=== PATIENT | female | born 2000 | race Caucasian/White ===

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

== ENCOUNTER 2021-05-22 10:39 | Emergency (ER) | payer BC, SELFPAY ==
--- NOTE | 2021-05-22 10:50 | XR_ITS ---
FINAL REPORT CLINICAL HISTORY: . pt fell down steps and has pain. pain when walking. pain worse going to sitting to standing. FINDINGS: SACRUM/COCCX Two views demonstrate a mildly displaced fracture of the inferior sacrum seen on the lateral view. No other fracture or dislocation. IMPRESSION: Fracture as above. Reviewed, Interpreted and Dictated by Nic Landa III, MD Transcribed by Anayeli Sanchez Authenticated by Nic Landa III, MD on 05/22/2021 12:46:35 PM [facility]
[2021-05-22 11:15] VITALS: BP 129/76; PULSE 87; RESP 18; TEMP 37; O2SAT 98; BMI 33.0
--- NOTE | 2021-05-22 11:48 | HMH.EDUTC ---
[facility] Disposition Clinical Impression: Coccyx contusion Qualifiers: Encounter type: initial encounter Qualified Code(s): S30.0XXA - Contusion of lower back and pelvis, initial encounter Disposition: Home, Self-Care Condition on Discharge: Good Instructions: Contusion, DI for Contusion, Ibuprofen Additional Instructions: You may have pain when bending, having sex, lifting objects, or during bowel movements. You may also have bruises, swelling near your anus, and trouble walking or standing up Nonsteroidal anti-inflammatory (NSAID) medicine may decrease swelling and pain or fever. This medicine can be bought with or without a doctor's order Avoid activities that may make your pain worse or may injure your coccyx again. These include picking up heavy things and doing contact or hard sports. When the pain decreases, begin normal, slow movements as caregivers tell you. Rest may help relieve your pain. Sit in a donut-shaped support cushion, and sleep on a firm mattress to help decrease pain. Sleep on your back with a pillow under your knees to help you sleep better. This will decrease the tension on your back. You may also sleep on your side with one or both of your knees bent. Hot or cold compresses may be used soon after having a coccyx injury. Heat or cold is also used to help decrease pain and swelling after having surgery. Heat: Use heat 15 to 20 minutes every hour as long as you need it. Heat brings blood to the injured area and may help it heal faster. Use warm compresses, a heating pad, or sit in a warm water bath. A warm moist compress is a small towel dampened with hot water and placed in a plastic bag. Wrap a towel around the plastic bag to prevent corea. Be careful if you use a heating pad by keeping it turned on low. Do not sleep with a heating pad . Ice: Ice causes blood vessels to constrict (get small) which helps decrease swelling, pain, and redness. Ice is best started right after an injury and for the next 24 to 48 hours afterwards. Put crushed ice in a plastic bag and cover it with a towel. Place this on your coccyx area for 15 to 20 minutes every hour as long as you need it. Do not sleep with the ice pack on your injury Follow up with Family Doctor if no improvement or any worsening of symptoms Return if needed May need to take stool softner for the next week to help prevent straining Straight to the ER if any life threatening symptoms Referrals: Michael Newell MD [Primary Care Provider] - As needed Forms: Work/School Release Time of Disposition: 12:34 Medical Decision Making - Jeffrey Inquiry Pt receiving controlled substance: No Jeffrey was queried for this patient: No Vital Signs: 05/22/21 11:15 Temperature 98.6 F Temperature Source Oral Pulse Rate [Right Brachial] 87 Respiratory Rate 18 Blood Pressure [Right Arm] 129/76 Blood Pressure Mean [Right Arm] 93 Blood Pressure Source [Right Arm] Automatic Cuff Blood Pressure Position [Right Arm] Sitting 02 Sat by Pulse Oximetry 98 Oxygen Delivery Method Room Air Orders (Tests/Meds): ORDERS Category Date Time Status Coccyx XR 2 view [XR coccyx 2V] Stat Exams 05/22/21 10:50 Taken - Radiology Data #1 Image(s): Other (coccyx) Image Reviewed: Yes I reviewed the patient's radiology image w/the ED provider Preliminary Findings: No Fracture Seen [facility] HPI - General Stated complaint: AO fall 05/22 tailbone pain Time Seen by Provider: 05/22/21 11:48 Mode of Arrival: Ambulatory Source of Information: Patient Limitations: No Limitations Description of Symptoms (Recalled from Triage Doc. by RN): PATIENT C/O PAIN TO TAILBONE AFTER FALLING DOWN STEPS AND LANDING ON IT THIS MORNING HEENT Symptoms (Recalled from RN notes): No Resp Symptoms (Recalled from RN notes): No Skin Symptoms (Recalled from RN notes): No MS Symptoms (Recalled from RN notes): Yes Functional Status (Recalled from RN notes): WNL - History of Present Illness Provider Complaint: Patient states
[2021-05-22 12:43] VITALS: BP 129/76; PULSE 87; RESP 18; TEMP 37; O2SAT 98
== END 2021-05-22 12:50 | disposition home or self-care (01) ==
PROVIDERS: Emergency Provider Nurse Practitioner; PCP Family Medicine
DX: S30.0XXA Contusion of lower back and pelvis, initial encounter (principal); W10.9XXA Fall (on) (from) unspecified stairs and steps, initial encounter; Y92.019 Unspecified place in single-family (private) house as the place of occurrence of the external cause
CPT/HCPCS: 72220; 99202; G0463

== ENCOUNTER → 2023-02-15 17:27 | Outpatient (CLI) | payer BC, SELFPAY ==
[2023-02-17 09:30] LABS: Progesterone 10.3 ng/mL (.)
== END ==
PROVIDERS: Visit Provider Nurse Practitioner Obstetrics & Gynecology
DX: N92.6 Irregular menstruation, unspecified (principal)
CPT/HCPCS: 36415; 84144; 84702

== ENCOUNTER → 2023-02-22 14:40 | Outpatient (CLI) | payer BC, SELFPAY ==
[2023-02-22 15:23] LABS: Basophils % 0.3 % (0.1-2.0); Eosinophils # 0.2 K/mm3 (0.0-0.4); Eosinophils % 1.4 % (0.1-12.0); Hematocrit 38.9 % (37.0-47.0); Hemoglobin 12.7 g/dL (12.2-16.2); Lymphocytes # 2.5 K/mm3 (0.7-4.5); Lymphocytes % 23.1 % (10-50); Mean Corpuscular HGB Conc 32.7 g/dL (31.8-35.4); Mean Corpuscular Hemoglobin 31.9 pg (27.0-31.2); Mean Corpuscular Volume 97.6 fl (81-99); Mean Platelet Volume 7.7 fl (7.4-10.4); Monocytes # 0.5 K/mm3 (0.1-1.0); Monocytes % 4.9 % (1.7-9.3); Neutrophils # 7.5 K/mm3 (1.8-7.8); Neutrophils % 70.3 % (37.0-80.0); Platelet Count 313 K/mm3 (142-424); Red Blood Count 3.99 M/mm3 (4.20-5.40); Red Cell Distribution Width 12.8 % (11.5-17.5); White Blood Count 10.7 K/mm3 (4.8-10.8)
[2023-02-24 06:00] LABS: HIV Screen 4th Generation wRfx Non Reactive (Non Reactive)
[2023-02-24 10:14] LABS: Rapid Plasma Reagin Ab Titer Non Reactive titer (NonRea<1:1)
[2023-03-01 09:43] LABS: Hepatitis B Surface Antigen Negative; Hepatitis C Antibody Non Reactive; Rubella Antibodies, IgG 2.94
== END ==
PROVIDERS: PCP Family Medicine; Visit Provider Nurse Practitioner Obstetrics & Gynecology
DX: Z34.91 Encounter for supervision of normal pregnancy, unspecified, first trimester (principal); Z3A.08 8 weeks gestation of pregnancy
CPT/HCPCS: 36415; 85025; 86593; 86703; 86762; 86850; 87086; 87340; 87380; G0432

== ENCOUNTER → 2023-02-25 10:31 | Outpatient (CLI) | payer BC, SELFPAY ==
--- NOTE | 2023-02-25 10:35 | US_ITS ---
PROCEDURE: US OB <= 14 WEEKS FETUS CLINICAL INDICATION: for dates COMPARISON: No exams were available for comparison FINDINGS: Transvaginal sonographic images of the pelvis were obtained. From her last menstrual period she is 8weeks 4days. An intrauterine gestational sac is present with a pole with a crown-rump length of 1.68cm This correlates to a gestational age of 8weeks 1day. heart tones are present with an FHR of 160bpm. Yolk sac is noted. The yolk sac measures 5.1mm. The right ovary is seen and appears normal. It measures 2.9 cm x 2.2 cm x 2.7 cm. The left ovary is seen and appears normal. It measures 2.9 cm x 2.4 cm x 2.1 cm. There is no fluid in the cul-de-sac. IMPRESSION: 1. Viable fetus within the uterine cavity. 2. Fetus measures 8 weeks and 1 day. Her ANDRE will remain 10/03/2023 based on her LMP. 3. Both ovaries are seen and appear normal. 4. No fluid in the cul-de-sac. Dictated by: Harris Espino MD 02/25/2023 17:51 Harris Espino MD in OV 02/25/2023 17:51
== END ==
PROVIDERS: PCP Family Medicine; Visit Provider Nurse Practitioner Obstetrics & Gynecology
DX: Z34.91 Encounter for supervision of normal pregnancy, unspecified, first trimester (principal); Z3A.08 8 weeks gestation of pregnancy
CPT/HCPCS: 76801

== ENCOUNTER 2023-05-18 12:48 | Outpatient (CLI) | payer BC, SELFPAY ==
--- NOTE | 2023-05-18 12:53 | US_ITS ---
PROCEDURE: US OB /MATERNAL DETAIL CLINICAL INDICATION: 20 weeks gestation anatomy scan COMPARISON: No exams were available for comparison FINDINGS: Transabdominal sonographic images of the pelvis were obtained. From her established due date she is 19 weeks 6 days. Single viable intrauterine gestation. Cephalic position. Placenta: Posteriorplacenta grade 1. There is an average amount of fluid. The cervix appears satisfactory. Closed and measuring 3.2 cm in length. Complete survey performed and was unremarkable on the submitted images as in PACS. No discrete anomalies identified on survey imaging by technologist. Active fetus. Three-vessel cord with satisfactory umbilical cord insertion. 4- chamber heart noted. Situs, aortic arch, LVOT, RVOT, three-vessel view appear normal. Survey of brain & ventricles Unremarkable. Cerebellum, thalamus, choroid plexus, cisterna magna appear normal. Face and neck survey unremarkable. Profile, nasion, lips and nose appeared normal. Diaphragm and chest views unremarkable. Abdomen: Both kidneys noted and unremarkable. Stomach and bladder noted and satisfactory. Spine: Survey of the spine satisfactory with no anomalies identified nor imaged. Cervical, thoracic, lower spine appear normal. Both arms and legs noted. Amniotic Fluid: Adequate. Measurements: Average ultrasound age 20weeks 1day. Estimated due date by ultrasound age 0710/04/2023. Estimated weight 336g BPD = 20weeks 0 days HC = 20weeks 0 days AC = 20weeks 3days FL = 20weeks 1day Growth Percentile= 63 Heart Rate = 152bpm Cerebellum = 19weeks 1day Humerus = 20weeks 5days HC/AC is 1.15 FL/BPD is 0.7 FL/AC is 0.21 IMPRESSION: 1. Viable fetus in the cephalic presentation with a posterior placenta grade 1. 2. The fluid is within normal limits. 3. Anatomical scan appears normal. 4. biometry is consistent with the dates. Dictated by: Harris Espino MD 05/18/2023 14:57 Harris Espino MD in OV 05/18/2023 14:57
== END 2023-05-18 23:59 ==
LOC: RAD 12:50
PROVIDERS: PCP Family Medicine; Visit Provider Nurse Practitioner Obstetrics & Gynecology
DX: O26.892 Other specified pregnancy related conditions, second trimester (principal); Z3A.20 20 weeks gestation of pregnancy
CPT/HCPCS: 76811

== ENCOUNTER 2023-07-13 08:13 | Outpatient (CLI) | payer BC, SELFPAY ==
[2023-07-13 08:39] LABS: Basophils # 0.1 K/mm3 (0-0.2); Basophils % 0.5 % (0.1-2.0); Eosinophils # 0.2 K/mm3 (0.0-0.4); Eosinophils % 1.8 % (0.1-12.0); Hematocrit 38.6 % (37.0-47.0); Hemoglobin 12.1 g/dL (12.2-16.2); Lymphocytes # 2.1 K/mm3 (0.7-4.5); Lymphocytes % 17.4 % (10-50); Mean Corpuscular HGB Conc 31.4 g/dL (31.8-35.4); Mean Corpuscular Hemoglobin 31.5 pg (27.0-31.2); Mean Corpuscular Volume 100.3 fl (81-99); Monocytes # 0.5 K/mm3 (0.1-1.0); Monocytes % 4.2 % (1.7-9.3); Neutrophils # 9.1 K/mm3 (1.8-7.8); Platelet Count 279 K/mm3 (142-424); Red Blood Count 3.84 M/mm3 (4.20-5.40); Red Cell Distribution Width 13.5 % (11.5-17.5)
[2023-07-13 08:56] LABS: Glucose,Fasting 99 mg/dl (74-100)
[2023-07-13 10:31] LABS: Glucose 1 Hour 168 mg/dL (74-100)
== END 2023-07-13 23:59 ==
PROVIDERS: PCP Family Medicine; Visit Provider Nurse Practitioner Obstetrics & Gynecology
DX: O26.893 Other specified pregnancy related conditions, third trimester (principal); Z3A.29 29 weeks gestation of pregnancy
CPT/HCPCS: 36415; 82951; 85025

== ENCOUNTER 2023-07-20 08:19 | Outpatient (CLI) | payer BC, SELFPAY ==
[2023-07-20 09:21] LABS: Glucose,Fasting 98 mg/dl (74-100)
[2023-07-20 12:21] LABS: Glucose 3 Hour 83 mg/dL (74-100)
[2023-07-20 12:34] LABS: Glucose 1 Hour 193 mg/dL (74-100); Glucose 2 Hour 130 mg/dL (74-100)
== END 2023-07-20 23:59 ==
LOC: LAB 08:20
PROVIDERS: PCP Family Medicine; Visit Provider Nurse Practitioner Obstetrics & Gynecology
DX: O26.893 Other specified pregnancy related conditions, third trimester (principal); Z3A.29 29 weeks gestation of pregnancy
CPT/HCPCS: 36415; 82951

== ENCOUNTER 2023-08-19 08:41 | Outpatient (CLI) | payer BC, SELFPAY ==
[2023-08-19 09:13] LABS: Basophils # 0.1 K/mm3 (0-0.2); Basophils % 0.7 % (0.1-2.0); Eosinophils # 0.1 K/mm3 (0.0-0.4); Eosinophils % 0.9 % (0.1-12.0); Hematocrit 35.7 % (37.0-47.0); Hemoglobin 11.7 g/dL (12.2-16.2); Lymphocytes # 1.7 K/mm3 (0.7-4.5); Mean Corpuscular HGB Conc 32.8 g/dL (31.8-35.4); Mean Corpuscular Hemoglobin 31.9 pg (27.0-31.2); Mean Corpuscular Volume 97.3 fl (81-99); Mean Platelet Volume 9.2 fl (7.4-10.4); Monocytes # 0.5 K/mm3 (0.1-1.0); Monocytes % 4.6 % (1.7-9.3); Neutrophils # 7.5 K/mm3 (1.8-7.8); Neutrophils % 76.7 % (37.0-80.0); Platelet Count 221 K/mm3 (142-424); Red Blood Count 3.67 M/mm3 (4.20-5.40); White Blood Count 9.8 K/mm3 (4.8-10.8)
[2023-08-19 10:33] LABS: Alanine Aminotransferase 19 U/L (12-78); Albumin Level 3.4 g/dl (3.5-5.0); Albumin/Globulin Ratio 1.3 (1.1-1.8); Alkaline Phosphatase 71 U/L (38-126); Anion Gap 12.6 mEq/L (5-15); Aspartate Amino Transferase 20 U/L (14-36); Bilirubin,Total 0.2 mg/dl (0.2-1.3); Blood Urea Nitrogen 9 mg/dl (7-17); Calcium 8.9 mg/dl (8.4-10.2); Carbon Dioxide 20 mmol/L (22.0-30.0); Chloride 107 mmol/L (98-107); Estimated Glomerular Filt Rate 152 ml/min (>60); GFR (African American) 183 ML/MIN (>60); Globulin 2.6 g/dL (1.3-3.2); Glucose 96 mg/dl (74-100); Potassium 3.6 mmoL/L (3.5-5.1); Sodium 136 mmol/L (136-145); Uric Acid 4.5 mg/dl (2.5-6.2)
[2023-08-19 15:52] LABS: Total Protein 24 Hour,Urine 188 mg/24 hr (40-90); Total Volume,Urine 1250 mL (600-1600)
== END 2023-08-19 23:59 | disposition home or self-care (01) ==
LOC: LAB 08:42
PROVIDERS: PCP Family Medicine; Visit Provider Nurse Practitioner Obstetrics & Gynecology
DX: O13.9 Gestational [pregnancy-induced] hypertension without significant proteinuria, unspecified trimester (principal)
CPT/HCPCS: 36415; 80053; 84155; 84550; 85025

== ENCOUNTER 2023-09-05 09:28 | Outpatient (CLI) | payer BC, SELFPAY | END 2023-09-05 23:59 | disposition home or self-care (01) | LOC: LAB.DROPOF 09-06 09:29 | PROVIDERS: PCP Nurse Practitioner Obstetrics & Gynecology; Visit Provider Nurse Practitioner Obstetrics & Gynecology | DX: O13.3 Gestational [pregnancy-induced] hypertension without significant proteinuria, third trimester (principal); O24.410 Gestational diabetes mellitus in pregnancy, diet controlled; Z3A.36 36 weeks gestation of pregnancy | CPT/HCPCS: 86403; 87086 ==

== ENCOUNTER 2023-09-12 15:09 | Inpatient (IN) | payer BC, SELFPAY ==
[2023-09-12 15:19] VITALS: BMI 35.9
--- NOTE | 2023-09-12 15:25 | HMH.PHAINT1 ---
Pharmacy Intervention Comments: MEDICATION RECONCILIATION COMPLETED ON PATIENT USING EXTERNAL FILL HISTORY FROM PHARMACY. -BAILEY CHARLES, OZD
[2023-09-12 15:53] LABS: Basophils % 0.3 % (0.1-2.0); Eosinophils # 0.1 K/mm3 (0.0-0.4); Eosinophils % 1.5 % (0.1-12.0); Hematocrit 34.8 % (37.0-47.0); Hemoglobin 11.4 g/dL (12.2-16.2); Lymphocytes # 1.8 K/mm3 (0.7-4.5); Lymphocytes % 19.5 % (10-50); Mean Corpuscular HGB Conc 32.8 g/dL (31.8-35.4); Mean Corpuscular Hemoglobin 31.2 pg (27.0-31.2); Mean Corpuscular Volume 95.3 fl (81-99); Mean Platelet Volume 8.9 fl (7.4-10.4); Monocytes # 0.5 K/mm3 (0.1-1.0); Monocytes % 5.8 % (1.7-9.3); Neutrophils # 6.6 K/mm3 (1.8-7.8); Neutrophils % 72.9 % (37.0-80.0); Platelet Count 269 K/mm3 (142-424); Red Blood Count 3.65 M/mm3 (4.20-5.40); White Blood Count 9.1 K/mm3 (4.8-10.8)
[2023-09-12 16:01] LABS: Chloride 110 mmol/L (98-107); Potassium 4.3 mmoL/L (3.5-5.1); Sodium 134 mmol/L (136-145)
[2023-09-12 16:04] LABS: Alanine Aminotransferase 20 U/L (12-78); Albumin Level 3.5 g/dl (3.5-5.0); Albumin/Globulin Ratio 1.1 (1.1-1.8); Alkaline Phosphatase 84 U/L (38-126); Anion Gap 9.3 mEq/L (5-15); Aspartate Amino Transferase 24 U/L (14-36); Bilirubin,Total 0.2 mg/dl (0.2-1.3); Blood Urea Nitrogen 11 mg/dl (7-17); Carbon Dioxide 19 mmol/L (22.0-30.0); Creatinine Clearance Estimated 259 mL/min (50-200); Estimated Glomerular Filt Rate 123 ml/min (>60); GFR (African American) 149 ML/MIN (>60); Globulin 3.2 g/dL (1.3-3.2); Total Protein,Serum 6.7 g/dl (6.3-8.2)
[2023-09-12 16:05] LABS: Calcium 9.2 mg/dl (8.4-10.2); Glucose 105 mg/dl (74-100)
[2023-09-12 16:33] VITALS: BMI 35.9
[2023-09-12] MEDS: miSOPROStol 100MCG TABLET 50 MCG PO ×2 (16:50→23:13)
[2023-09-12] MEDS: DEXTROSE 5%-LACTATED RINGERS 1,000 ML 125 ML IV (16:50)
[2023-09-12] MEDS: LACTATED RINGERS 1000ML 1,000 ML 250 ML IV (16:50)
[2023-09-12 21:04] LABS: Microscopic, Urine URINE MICROSCOPIC (MICROSCOPIC)
[2023-09-12 21:10] LABS: Appearance,Urine CLEAR (Clear); Bilirubin,Urine Negative (Negative); Blood, Urine Negative (Negative); Color,Urine DARK YELLOW (Yellow); Glucose,Urine (UA) Negative (Negative); Ketones,Urine Negative (Negative); Leukocyte Esterase,Urine Negative (Negative); Nitrate,Urine Negative (Negative); Protein,Urine TRACE (Negative); Specific Gravity, Urine >= 1.030 (1.005-1.030); Urobilinogen,Urine 0.2 EU/dl (0.2)
[2023-09-12 21:23] LABS: Amphetamine/Metha Screen,Urine Negative ng/ml (<1000)
[2023-09-12 21:24] LABS: Barbiturates Screen,Urine Negative ng/ml (<200); Benzodiazepines Screen,Urine Negative ng/ml (<200)
[2023-09-12 21:25] LABS: Cannabinoid Screen,Urine Negative ng/ml (<50)
[2023-09-12 21:26] LABS: Cocaine Screen,Urine Negative ng/ml (<300)
[2023-09-12 21:27] LABS: Methadone Screen,Urine Negative ng/ml (<300); Opiate Screen,Urine Negative ng/ml (<300)
[2023-09-12 21:28] LABS: Phencyclidine Screen,Urine Negative ng/ml (<25)
[2023-09-12] MEDS: LABETALOL 100MG TABLET 200 MG PO (21:29)
[2023-09-12 21:35] LABS: Bacteria,Urine 1+ /lpf; Mucus,Urine 1+ /lpf
[2023-09-12 21:36] LABS: Calcium Oxalate Crystals,Urine Trace /lpf
[2023-09-13] MEDS: DEXTROSE 5%-LACTATED RINGERS 1,000 ML 125 ML IV ×2 (04:49→19:44)
[2023-09-13] MEDS: OXYTOCIN/RINGERS LACTATE 30 UNITS/500 ML BAG IV (04:50)
[2023-09-13 07:19] VITALS: BP 164/93; PULSE 74; RESP 16; TEMP 36.7; O2SAT 97
--- NOTE | 2023-09-13 08:44 | EXP.LABOR.NO ---
Labor Note Subjective: Date: 09/13/23 Time: 08:44 regular contraction Objective: NST:: Reactive Contractions:: every 2-3 minutes Cervical Dilation:: 3 Effacement:: 50% Station: -2 Membranes: artificially ruptured Comment:: I ruptured membranes and there was clear fluid. Fetus: Monitoring?: Yes monitoring type:: Internal Comment:: I applied a scalp clip and inserted an IUPC. Assessment: Labor progressing?: Yes Cephalopelvic disproportion?: No Plan: Anesthesia for epidural?: No Continue to labor down?: Yes Plan for ?: No Continue to monitor?: Yes Start pushing?: No Comment:: She has progressed overnight and the cervix is soft 3 cm plus and Station -2. I ruptured her membranes and there was clear fluid. I inserted an IUPC and scalp clip. We will plan for vaginal delivery.
[2023-09-13] MEDS: LABETALOL 100MG TABLET 200 MG PO ×2 (08:52→22:44)
[2023-09-13] MEDS: LACTATED RINGERS 1000ML 1,000 ML 500 ML IV (08:52)
--- NOTE | 2023-09-13 10:56 | P.PNANES_ITS ---
[facility] Disclaimer: The information contained in this section may have been updated after the patient was seen, as this information can be updated by other users. Medical History Gestational diabetes mellitus (GDM) Surgical History No significant past surgical history Family History Other Diabetes Hypertension Social History Smoking Status: Former smoker tobacco type: cigarettes packs per day: 1 alcohol intake: never substance use type: denies use current occupational status: employed Travel in the last 8 weeks: None [facility] Anesthesia Checklist Patient Identification Patient Identification: Arm Band Structural Data Admitted From: Inpatient Planned Operative Procedure/s: Labor Epidural Consent for Planned Operative Procedure(s) Verified: Yes Verified Documents: Surgical Consent and History and Physical NPO Status Verified Time NPO: 00:00 Additional verifications Anesthesia Reactions: No Neurological Assessment Level of Consciousness: Awake, Alert and Appropriate Anesthesia Plan Anesthesia Risk discussed: Yes Anesthesia Plan: Verified ASA Class: II Anesthesia Type: Epidural
--- NOTE | 2023-09-13 11:18 | EXP.LABOR.NO ---
Labor Note Subjective: Date: 09/13/23 Time: 11:18 regular contraction Objective: NST:: Reactive Contractions:: every 2-3 minutes Cervical Dilation:: 4 Effacement:: 80% Station: -1 Membranes: artificially ruptured Fetus: Monitoring?: Yes monitoring type:: Internal Assessment: Labor progressing?: Yes Cephalopelvic disproportion?: No Plan: Anesthesia for epidural?: Yes Continue to labor down?: Yes Plan for ?: No Continue to monitor?: Yes Start pushing?: No Additional information:: She continues to do well and the cervix has thinned and is now 4 cm dilated. The baby's head is come down. She has an epidural. We will expect a vaginal delivery.
--- NOTE | 2023-09-13 11:19 | EXP.HP ---
History of Present Illness *Admission Date: 09/12/23 *Reason for visit:: Term , chronic hypertension, gestational diabetes on insulin *History of present illness: She is a 23-year-old 1 para 0 at 37 weeks gestational age. She has been followed at [facility] for her gestational diabetes. She also has chronic hypertension. She has been taking labetalol 200 mg twice daily. As result of these diagnoses she is admitted for induction of labor at term. A positive blood Rubella immune GBS negative PFSH PFS Disclaimer: The information contained in this section may have been updated after the patient was seen, as this information can be updated by other users. Medical History Gestational diabetes mellitus (GDM) Surgical History No significant past surgical history Family History Diabetes Hypertension Social History Smoking Status: Former smoker tobacco type: cigarettes packs per day: 1 alcohol intake: never substance use type: denies use current occupational status: employed Travel in the last 8 weeks: None Review of Systems Review of Systems Review of systems:: pertinent systems reviewed and negative unless documented below Meds Home Medications and Allergies Home Medications Medication Instructions Recorded Confirmed Type vits no.126-ferrous fum 1 tab PO DAILY 02/22/23 09/12/23 History 28 mg iron-folic acid 800 mcg tablet (Classic ) famotidine 20 mg tablet (Pepcid) 20 mg PO DAILY #30 tabs 06/02/23 09/12/23 Rx aspirin 81 mg tablet,delayed 81 mg PO DAILY 07/07/23 09/12/23 History release (Adult Low Dose Aspirin) blood sugar diagnostic (Accu-Chek #10 ea 08/10/23 09/12/23 History Guide test strips) blood-glucose meter (Accu-Chek #1 ea 08/10/23 09/12/23 History Guide Glucose Meter) labetalol 200 mg tablet 200 mg PO BID #60 tabs 08/17/23 09/12/23 Rx blood-glucose meter,continuous #1 ea 08/24/23 09/12/23 History (Dexcom G7 Reconstructive Surgeon) blood-glucose sensor (Dexcom G7 #1 ea 08/24/23 09/12/23 History Sensor device) insulin glargine 100 unit/mL (3 10 unit SQ DAILY 08/24/23 09/12/23 History mL) subcutaneous pen (Lantus Solostar U-100 Insulin) pen needle, diabetic 31 gauge x #1,200 ea 08/24/23 09/12/23 History 06/17 (BD Ultra-Fine Mini Pen Needle) New Prescriptions to Start Prescriptions: Allergies Allergy/AdvReac Type Severity Reaction Status Date / Time acetaminophen Allergy Mild Hives Verified 09/08/23 08:33 [From Pamprin Max] Exam Data for Last 24 hours Vital signs and Labs for Last 24 Hours: Temp Pulse Resp BP Pulse Ox O2 Del Method 98.1 F 74 16 164/93 H 97 Room Air 09/13/23 07:19 09/13/23 07:19 09/13/23 07:19 09/13/23 07:19 09/13/23 07:19 09/13/23 07:19 Laboratory Results - last 24 hr 09/12/23 15:40: WBC 9.1, RBC 3.65 L, Hgb 11.4 L, Hct 34.8 L, MCV 95.3, MCH 31.2, MCHC 32.8, RDW 14.0, Plt Count 269, MPV 8.9, Neut % (Auto) 72.9, Lymph % (Auto) 19.5, Union % (Auto) 5.8, Eos % (Auto) 1.5, Baso % (Auto) 0.3, Neut # (Auto) 6.6, Lymph # (Auto) 1.8, Union # (Auto) 0.5, Eos # (Auto) 0.1, Baso # (Auto) 0.0, Sodium 134 L, Potassium 4.3, Chloride 110 H, Carbon Dioxide 19 L, Anion Gap 9.3, BUN 11, Creatinine 0.60, Estimated Creat Clear 259, Estimated GFR 123, Est GFR ( Amer) 149, Glucose 105 H, Calcium 9.2, Total Bilirubin 0.2, AST 24, ALT 20, Alkaline Phosphatase 84, Total Protein 6.7, Albumin 3.5, Globulin 3.2, Albumin/Globulin Ratio 1.1, Blood Type A Positive, Antibody Screen Negative 09/12/23 20:55: Urine Color Dark yellow, Urine Appearance Clear, Urine pH 6.0, Ur Specific [place] >= 1.030, Urine Protein Trace, Urine Glucose (UA) Negative, Urine Ketones Negative, Urine Blood Negative, Urine Nitrate Negative, Urine Bilirubin Negative, Urine Urobilinogen 0.2, Ur Leukocyte Esterase Negative, Urine WBC 3-5, Ur Squamous Epith Cells 5-10, Calcium Oxalate Crystal Trace, Urine Bacteria 1+, Hyaline Casts 3-5, Urine Mucus 1+, Urine Opiates Screen Negative, Urine Methadone Screen Negative, Ur Barbituates Screen Negative, Ur Phencyclidine Scrn Negative, Ur Amphetamines Screen Negative, U Benzodiazepines Scrn Negative, Urine Cocaine Screen Negative, U Marijuana (THC) Screen Negative I & O for Last 24 hours: Intake & Output 09/10/23 09/11/23 09/12/23 09/13/23 11:59 11:59 11:59 11:59 Weight 250 lb Constitutional Constitutional: no acute distress *Routine HEENT Exam Head: Present normocephalic Eye: Present EOMI and PERRL ENT: Present mucous membranes moist *Routine Neck Exam Neck: Present supple; Absent lymphadenopathy *Routine Respiratory Exam Respiratory: Present CTA bilaterally *Routine Cardiovascular Exam Cardiovascular: Present RRR *Routine Abdominal Exam Abdominal: Present soft and normoactive bowel sounds; Absent tenderness *Routine Rectal Exam Rectal:: deferred *Routine Genitalia Exam Genitalia:: deferred *Routine Extremities Exam Extremities: Absent cyanosis, clubbing or edema *Routine Skin Exam Skin: Present warm; Absent rash *Routine Neurological Exam Neurological: Present alert and oriented X3 Assessment and Plan *Assessment and plan (1) Gestational hypertension: Status: Acute Qualifiers: Trimester: third trimester Qualified Code(s): O13.3 - Gestational [-induced] hypertension without significant proteinuria, third trimester Category: Medical Code(s): O13.9 - Gestational [-induced] hypertension without significant proteinuria, unspecified trimester (2) Gestational diabetes mellitus (GDM): Status: Acute Qualifiers: Gestational diabetes mellitus control: diet-controlled Trimester: third trimester Qualified Code(s): O24.410 - Gestational diabetes mellitus in , diet controlled Category: Medical Code(s): O24.419 - Gestational diabetes mellitus in , unspecified control Plan She has gestational diabetes on insulin once daily as well as chronic hypertension. As result of this we are inducing her at term.
--- NOTE | 2023-09-13 13:49 | EXP.LABOR.NO ---
Labor Note Subjective: Date: 09/13/23 Time: 13:25 regular contraction Objective: NST:: Reactive Contractions:: every 2-3 minutes Cervical Dilation:: 5 Effacement:: 80% Station: -1 Membranes: artificially ruptured Fetus: Monitoring?: Yes monitoring type:: Internal Assessment: Labor progressing?: Yes Cephalopelvic disproportion?: No Plan: Anesthesia for epidural?: Yes Continue to labor down?: Yes Plan for ?: No Continue to monitor?: Yes Start pushing?: No Additional information:: She is having regular contractions. Her cervix has continued to change. We will continue with the fact and management.
[2023-09-13] MEDS: ONDANSETRON 4MG/2ML VIAL 4 MG IV (16:24)
[2023-09-13 16:36] VITALS: BP 145/92; PULSE 94; RESP 18; TEMP 36.7; O2SAT 100
--- NOTE | 2023-09-13 16:36 | EXP.LABOR.NO ---
Labor Note Subjective: Date: 09/13/23 Time: 16:36 regular contraction Objective: NST:: Reactive Contractions:: every 2-3 minutes Cervical Dilation:: 6 Effacement:: 90% Station: 0 Membranes: artificially ruptured Fetus: Monitoring?: Yes monitoring type:: Internal Assessment: Labor progressing?: Yes Cephalopelvic disproportion?: No Plan: Anesthesia for epidural?: Yes Continue to labor down?: Yes Plan for ?: No Continue to monitor?: Yes Start pushing?: No Comment:: She continues to do well. The baby's head has come down significantly. Cervix is 6 cm, 90%, Station 0. We will continue expectant management.
--- NOTE | 2023-09-13 19:25 | EXP.LABOR.NO ---
Labor Note Subjective: Date: 09/13/23 Time: 19:28 regular contraction Objective: NST:: Reactive Contractions:: every 2-3 minutes Cervical Dilation:: 5-6 Effacement:: 90% Station: 0 Membranes: artificially ruptured Fetus: Monitoring?: Yes monitoring type:: Internal Assessment: Labor progressing?: No Cephalopelvic disproportion?: Yes Plan: Anesthesia for epidural?: Yes Continue to labor down?: Yes Plan for ?: Yes Continue to monitor?: Yes Start pushing?: No Comment:: She really has not progressed all afternoon. If she does not progress in the next hour or so then we will consider a . We are increasing the oxytocin at this point. Nonstress test is reactive.
--- NOTE | 2023-09-13 21:17 | EXP.LABOR.NO ---
Labor Note Subjective: Date: 09/13/23 Time: 21:17 regular contraction Objective: NST:: Reactive Contractions:: every 2-3 minutes Cervical Dilation:: 7 Effacement:: 90% Station: 0 Membranes: artificially ruptured Fetus: Monitoring?: Yes monitoring type:: Internal and External Comment:: Clip came off and so we are now monitoring heartbeat externally. Assessment: Labor progressing?: Yes Cephalopelvic disproportion?: No Plan: Anesthesia for epidural?: Yes Continue to labor down?: Yes Plan for ?: No Continue to monitor?: Yes Start pushing?: No Comment:: Nonstress test is reactive and contractions are regular. I suspect she may be direct occiput posterior and that is why she is coming down so slowly. There is a significant amount of molding in the head but the head seems to come down well with contractions. We will continue to monitor and continue to expect a vaginal delivery.
[2023-09-13] MEDS: OXYTOCIN/RINGERS LACTATE 30 UNITS/500 ML BAG 999 UNITS IV (23:35)
--- NOTE | 2023-09-13 23:47 | P.PCN_ITS ---
Delivery Note Delivery Date:: 09/13/23 Delivery Time:: 23:32 Anesthesia Type: Epidural Was labor medically induced?: Yes Induction method: per misoprostol protocol Gestational age (weeks): 37 Infant delivered prior to 39 weeks?: Yes Justification for early elective delivery:: Gestational Hypertension and Diabetes Mellitus Infant Gender: Male at 1 minute: 8 at 5 minutes: 9 Delivery Procedure:: She is a 23-year-old 1 para 0 at 37+ weeks gestational age. She has gestational hypertension and likely chronic hypertension along with gestational diabetes. She was using low-dose long-acting insulin. As result of this we elected to induce her labor at 37 weeks. We started with 2 doses of oral misoprostol and then began IV oxytocin. She had her membranes ruptured and under labor epidural progressed to full dilation. She delivered spontaneously a liveborn male child at 11:32 PM in the evening of September 13, 2023. On delivery of the head, the anterior shoulder then easily delivered followed by the rest the 's body atraumatically. The baby was stimulated and cried spontaneously. The oropharynx and nasopharynx were bulb suctioned. We allowed the cord to continue to pulsate for approximately 1 minute. The cord was then doubly clamped and cut and the infant was placed on the mother's abdomen for further care. The nurses assigned Apgars of 8 at 1 minute and 9 at 5 minutes. We then obtained cord blood. She received IV oxytocin and using gentle traction on the cord and countertraction on the fundus I was able to easily deliver the placenta at 3 minutes after delivery. There was a normal three-vessel cord. There were no pe rineal or vaginal lacerations. She has A positive blood, she is well immune and was group B streptococcus negative. She plans to breast-feed. Estimated blood loss was approximately 100 cc. Placental Delivery Description: Spontaneous
[2023-09-13] MEDS: OXYTOCIN/RINGERS LACTATE 30 UNITS/500 ML BAG 40 UNITS IV (23:50)
[2023-09-14 06:57] LABS: Hematocrit 30.8 % (37.0-47.0); Hemoglobin 10.2 g/dL (12.2-16.2)
[2023-09-14 06:59] LABS: Chloride 108 mmol/L (98-107); Potassium 3.2 mmoL/L (3.5-5.1); Sodium 134 mmol/L (136-145)
[2023-09-14 07:01] LABS: Blood Urea Nitrogen 4 mg/dl (7-17); Creatinine Clearance Estimated 311 mL/min (50-200); Estimated Glomerular Filt Rate 152 ml/min (>60); GFR (African American) 183 ML/MIN (>60)
[2023-09-14 07:02] LABS: Alanine Aminotransferase 20 U/L (12-78); Albumin Level 2.9 g/dl (3.5-5.0); Albumin/Globulin Ratio 1.1 (1.1-1.8); Alkaline Phosphatase 87 U/L (38-126); Anion Gap 11.2 mEq/L (5-15); Aspartate Amino Transferase 26 U/L (14-36); Bilirubin,Total 0.5 mg/dl (0.2-1.3); Calcium 9.1 mg/dl (8.4-10.2); Carbon Dioxide 18 mmol/L (22.0-30.0); Globulin 2.6 g/dL (1.3-3.2); Glucose 117 mg/dl (74-100); Total Protein,Serum 5.5 g/dl (6.3-8.2)
--- NOTE | 2023-09-14 08:52 | P.PN_ITS ---
Subjective *Date: 09/14/23 *Time: 08:52 Interval history: She continues to do well this morning. Her lochia is normal. She is breast- feeding. She denies any pain. Hemoglobin is stable at 10.2. Medical Exam Vital signs and Labs for Last 24 Hours: Vital Signs Temp Pulse Resp BP Pulse Ox O2 Del Method 09/13/23 16:36 98.0 F 94 H 18 145/92 H 100 Room Air Intake and Output 09/13/23 09/14/23 09/14/23 19:59 03:59 11:59 Output Total 1000 / 1000 Balance -1000 / -1000 Output: Output, Urine Amount (Catheter) 1000 / 1000 Banuelos 1000 / 1000 Laboratory Results - last 24 hr 09/14/23 06:20: Hgb 10.2 L, Hct 30.8 L, Sodium 134 L, Potassium 3.2 L D, Chloride 108 H, Carbon Dioxide 18 L, Anion Gap 11.2, BUN 4 L D, Creatinine 0.50 L, Estimated Creat Clear 311 H, Estimated GFR 152, Est GFR ( Amer) 183 D , Glucose 117 H, Calcium 9.1, Total Bilirubin 0.5, AST 26, ALT 20, Alkaline Phosphatase 87, Total Protein 5.5 L, Albumin 2.9 L, Globulin 2.6, Albumin/Globulin Ratio 1.1 I & O for Labs for Last 24 Hours: Intake & Output 09/11/23 09/12/23 09/13/23 09/14/23 11:59 11:59 11:59 11:59 Output Total 1000 / 1000 Balance -1000 / -1000 Weight 250 lb Head: Present normocephalic ENT: Present normal exam Neck: Present normal inspection Respiratory: Present normal respiratory effort; Absent accessory muscle use Assessment and Plan *Assessment and plan (1) Gestational hypertension: Status: Acute Qualifiers: Trimester: third trimester Qualified Code(s): O13.3 - Gestational [-induced] hypertension without significant proteinuria, third trimester Category: Medical Code(s): O13.9 - Gestational [-induced] hypertension without significant proteinuria, unspecified trimester (2) Gestational diabetes mellitus (GDM): Status: Acute Qualifiers: Gestational diabetes mellitus control: diet-controlled Trimester: third trimester Qualified Code(s): O24.410 - Gestational diabetes mellitus in , diet controlled Category: Medical Code(s): O24.419 - Gestational diabetes mellitus in , unspecified control (3) Normal delivery: Status: Acute Category: Medical Code(s): O80 - Encounter for full-term uncomplicated delivery Plan She continues to do well. Her lochia is normal. She is breast-feeding. We will plan to send her home late tomorrow or the following day since she was only 37 weeks.
[2023-09-14 09:19] VITALS: BP 135/70; PULSE 115; RESP 16; TEMP 36.7; O2SAT 97
[2023-09-14] MEDS: LABETALOL 100MG TABLET 200 MG PO ×2 (09:43→21:33)
[2023-09-14 17:00] VITALS: BP 132/84; PULSE 99; RESP 16; TEMP 36.7; O2SAT 97
--- NOTE | 2023-09-14 21:21 | EXP.DC.SUM ---
General Admission date:: 09/12/23 Discharge date: 09/14/23 HPI HPI HPI: She is a 23-year-old 1 para 0 at 37 weeks gestational age. She has been followed at [facility] for her gestational diabetes. She also has chronic hypertension. She has been taking labetalol 200 mg twice daily. As result of these diagnoses she is admitted for induction of labor at term. A positive blood Rubella immune GBS negative Hospital Course Hospital Course Hospital Course: Lisa Acosta is a 23yo day #1 following a normal spontaneous vaginal delivery at 37 weeks gestation. was complicated by chronic hypertension and gestational diabetes on insulin. She delivered a live viable male infant, Marquez who weighed 7 pounds 5 ounces with Apgars of 8 and 9. She has both breast and bottlefeeding. Her EBL was 100 mL. She is rubella immune and GBS negative. She had an uncomplicated vaginal delivery and was discharged on day 1 when the infant was transferred to for NICU care. Routine discharge instructions reviewed with the patient in detail and she voiced understanding. All questions and concerns were addressed. The patient was appropriately tearful. Reviewed blues and depression. Patient will follow-up in 2 weeks for routine visit. Exam Data for Last 24 hours Vital signs and Labs for Last 24 Hours: Temp Pulse Resp BP Pulse Ox O2 Del Method 98.0 F 99 H 16 132/84 97 Room Air 09/14/23 17:00 09/14/23 17:00 09/14/23 17:00 09/14/23 17:00 09/14/23 17:00 09/14/23 17:00 Laboratory Results - last 24 hr 09/14/23 06:20: Hgb 10.2 L, Hct 30.8 L, Sodium 134 L, Potassium 3.2 L D, Chloride 108 H, Carbon Dioxide 18 L, Anion Gap 11.2, BUN 4 L D, Creatinine 0.50 L, Estimated Creat Clear 311 H, Estimated GFR 152, Est GFR ( Amer) 183 D, Glucose 117 H, Calcium 9.1, Total Bilirubin 0.5, AST 26, ALT 20, Alkaline Phosphatase 87, Total Protein 5.5 L, Albumin 2.9 L, Globulin 2.6, Albumin/Globulin Ratio 1.1 I & O for Last 24 hours: Intake & Output 09/11/23 09/12/23 09/13/23 09/14/23 23:59 23:59 23:59 23:59 Output Total 1000 / 1000 Balance -1000 / -1000 Weight 250 lb Narrative: General: patient is alert oriented in no acute distress and responds appropriately to questions. Appears to be in minimal pain. HEENT: NCAT, EOMI, moist mucous membranes, neck supple with full ROM Cardiovascular: RRR +S1/S2, no murmurs or rubs Pulmonary: Clear to auscultation bilaterally, nonlabored breathing, symmetric chest rise Abdominal: Fundus below the umbilicus, firm, and tenderness appropriate for the period. Extremities: trace edema, no tenderness or cyanosis noted Skin: Normal turgor, intact, warm. Negative for erythema, pallor, petechia, or lesions Neurologic: Negative for sensory or motor deficit Psychiatric: Normal affect, normal thought process, good judgment and insight. appropriately tearful and anxious about infant NICU transfer Results Data Completed and Pending Labs on day of discharge: Labs from last 24 hours 09/14/23 06:20 Hgb 10.2 L Hct 30.8 L Sodium 134 L Potassium 3.2 L D Chloride 108 H Carbon Dioxide 18 L Anion Gap 11.2 BUN 4 L D Creatinine 0.50 L Estimated Creat Clear 311 H Estimated GFR 152 Est GFR ( Amer) 183 D Glucose 117 H Calcium 9.1 Total Bilirubin 0.5 AST 26 ALT 20 Alkaline Phosphatase 87 Total Protein 5.5 L Albumin 2.9 L Globulin 2.6 Albumin/Globulin Ratio 1.1 DS: Diagnosis Discharge Diagnosis (1) Gestational hypertension: Status: Acute Code(s): O13.9 - Gestational [-induced] hypertension without significant proteinuria, unspecified trimester Qualifiers: Trimester: third trimester Qualified Code(s): O13.3 - Gestational [-induced] hypertension without significant proteinuria, third trimester Problem details: Patient's blood pressure has been mildly elevated on review of her course today. Continue home labetalol at 200 mg twice daily. She is overdue for her second dose of labetalol at this time. Discussed preeclampsia. Patient will return for any blood pressure 160/110 or greater, headaches, vision changes, or right upper quadrant pain. [facility] labs reviewed prior to discharge and within normal limits and appropriate (2) Gestational diabetes mellitus (GDM): Status: Acute Code(s): O24.419 - Gestational diabetes mellitus in , unspecified control Qualifiers: Gestational diabetes mellitus control: diet-controlled Trimester: third trimester Qualified Code(s): O24.410 - Gestational diabetes mellitus in , diet controlled Problem details: Discontinue all Accu-Cheks and medication Recommend a 6-week 75 g 2-hour Glucola challenge test to rule out type 2 diabetes mellitus (3) Normal delivery: Status: Acute Code(s): O80 - Encounter for full-term uncomplicated delivery Problem details: Uncomplicated delivery. Patient is doing well. Lochia scant. Ambulating without difficulty and voiding without dysuria. Follow-up in 2 weeks. Routine discharge instructions reviewed (4) GDM, class A1: Status: Acute Code(s): O24.410 - Gestational diabetes mellitus in , diet controlled Meds Home Medications and Allergies Home Medications Medication Instructions Recorded Confirmed Type vits no.126-ferrous fum 1 tab PO DAILY 02/22/23 09/12/23 History 28 mg iron-folic acid 800 mcg tablet (Classic ) famotidine 20 mg tablet (Pepcid) 20 mg PO DAILY #30 tabs 06/02/23 09/12/23 Rx blood sugar diagnostic (Accu-Chek #10 ea 08/10/23 09/12/23 History Guide test strips) blood-glucose meter (Accu-Chek #1 08/10/23 09/12/23 History Guide Glucose Meter) blood-glucose meter,continuous #1 08/24/23 09/12/23 History (Dexcom G7 Hadoop Application Developer) blood-glucose sensor (Dexcom G7 #1 08/24/23 09/12/23 History Sensor device) pen needle, diabetic 31 gauge x #1,200 08/24/23 09/12/23 History 3/16 (BD Ultra-Fine Mini Pen Needle) acetaminophen 500 mg tablet 500 mg PO Q6H PRN fever #30 tabs 09/14/23 Rx ferrous sulfate 325 mg (65 mg 325 mg PO DAILY #30 tabs 09/14/23 Rx iron) tablet,delayed release ibuprofen 800 mg tablet 800 mg PO Q8H PRN pain #60 tabs 09/14/23 Rx labetalol 200 mg tablet 200 mg PO BID #60 tabs 09/14/23 Rx sennosides 8.6 mg tablet (Senna 8.6 mg PO BIDP PRN Constipation 09/14/23 Rx Lax) #60 tabs New Prescriptions to Start Prescriptions: acetaminophen Pavan,Bisi ferrous sulfate Pavan,Bisi ibuprofen Pavan,Bisi labetalol Pavan,Bisi sennosides [Senna Lax] PavanBisi Allergies Allergy/AdvReac Type Severity Reaction Status Date / Time acetaminophen Allergy Mild Hives Verified 09/08/23 08:33 [[facility]] Discharge Plan Disposition Patient Disposition: Home, Self-Care Condition: Good Discharge Order Discharge Orders: Discharge Order (Routine); Ordered 09/14/23 Ordered By: Bisi Browne Follow up Plan Follow up with: Harris Espino MD [Staff Physician] - 2 weeks Prescriptions/Medication Reconciliation: New acetaminophen 500 mg tablet 500 mg PO Q6H PRN (Reason: fever) Qty: 30 3RF ferrous sulfate 325 mg (65 mg iron) tablet,delayed release (DR/EC) 325 mg PO DAILY Qty: 30 3RF sennosides [Senna Lax] 8.6 mg Tablet 8.6 mg PO BIDP PRN (Reason: Constipation) Qty: 60 2RF ibuprofen 800 mg tablet 800 mg PO Q8H PRN (Reason: pain) Qty: 60 2RF Continued Classic 28 mg iron- 800 mcg tablet 1 tab PO DAILY famotidine [Pepcid] 20 mg tablet 20 mg PO DAILY Qty: 30 4RF labetalol 200 mg tablet 200 mg PO BID Qty: 60 4RF Discontinued aspirin [Adult Low Dose Aspirin] 81 mg tablet,delayed release (DR/EC) 81 mg PO DAILY insulin glargine [Lantus Solostar U-100 Insulin] 100 unit/mL (3 mL) insulin pen 10 unit SQ DAILY Patient Comments: INJECT 10 UNITS UNDER THE SKIN INTO THE APPROPRIATE AREA DIRECTED EVERY NIGHT. No Action (DME) blood-glucose meter [Accu-Chek Guide Glucose Meter] Misc See Rx Instructions .ROUTE .MEDSUPPLY Qty: 1 Rx Instructions: As directed (DME) Accu-Chek Guide test strips Strip See Rx Instructions .ROUTE .MEDSUPPLY Qty: 10 Rx Instructions: As directed (DME) Dexcom G7 Hadoop Application Developer Misc See Rx Instructions .ROUTE .MEDSUPPLY Qty: 1 Patient Comments: USE 1 DEVICE CONTINUOUS Rx Instructions: As directed (DME) Dexcom G7 Sensor Device See Rx Instructions .ROUTE .MEDSUPPLY Qty: 1 Patient Comments: USE 1 EACH EVERY 10 DAYS Rx Instructions: As directed (DME) pen needle, diabetic [BD Ultra-Fine Mini Pen Needle] 31 gauge x 3/16 needle See Rx Instructions .ROUTE .MEDSUPPLY Qty: 1200 Patient Comments: USE 1 4 TIMES DAILY Rx Instructions: As directed Problem Reconciliation Problems Reviewed?: Yes Patient Discharge Instructions ACTIVITY: Continue current activity DIET: regular diet Additional Instructions: Congratulations on the delivery of your sweet baby boy. It is my privilege to be a part of your [employer] team. Discharge: -Take 800 mg Ibuprofen every 8 hours as needed for pain. You can also take 500-1000 mg of Tylenol in between doses, every 6-8 hours. -Colace can be taken 1-2 times per day as you need to soften your stool. Make sure to drink at least 8 cups of water per day. -Iron supplements can make you constipated. You can take iron tablets every other day if constipation is too bad. -Nothing in the vagina for 6 weeks - no sex, douching, tampons. No tub baths -Do not lift greater than 15 pounds for 6 weeks, this is the equivalent of 2 gallons of milk. -Reasons to return to L&D or call On-Call doctor - fever (greater than 100.4) - heavy vaginal bleeding (soaking through 1 pad in less than 2 hours or passing clots that are egg sized) - vaginal discharge (malodorous and/or purulent) - severe headaches, leg tenderness/edema, or any other symptoms that warrant immediate medical attention. depression/blues - Normal to feel anxious/overwhelmed for first 2 weeks - Talk to your doctor if: anxiety lasts over 2 weeks, trouble bonding with baby, withdrawing from other family members, thoughts of harming yourself or others Blood pressure and preeclampsia instructions 1. Please take your blood pressure twice daily. 2. Please call if greater than 2 values are higher than: 150 systolic (the top number) or 100 diastolic (the bottom number). 3. Please go to the emergency room or labor and delivery triage if any value is higher than: 160 systolic (the top number) or 110 diastolic (the bottom number). 4. Please call if unrelenting headache (does not go away with rest or Tylenol or ibuprofen), changes in vision (spots, floaters, flashes of light), chest pain, shortness of breath, or right upper quadrant (liver) abdominal pain. Bisi Browne DO [facility] [phone] *Nothing in the Vagina for 6 weeks* *No strenuous activity* *No heavy lifting* *No tub baths until okay's by MD* *Nothing in the vagina for 6 weeks* *No heavy lifting* *No strenuous activity* Patient Instructions: Depression, Hemorrhage, DI for Labor and Delivery, Vaginal , DI for Pre-eclampsia, [facility] Post Discharge Instructions Providers Primary Care Provider: Michael Newell Admit Provider: Harris Espino Attending Provider: Harris Espino
== END 2023-09-14 23:04 | disposition home or self-care (01) | DRG 807 ==
PROVIDERS: Admitting Provider Nurse Practitioner Obstetrics & Gynecology; PCP Family Medicine; Visit Provider Nurse Practitioner Obstetrics & Gynecology
DX: O10.92 Unspecified pre-existing hypertension complicating childbirth (principal); Z37.0 Single live birth; Z3A.37 37 weeks gestation of pregnancy; O24.424 Gestational diabetes mellitus in childbirth, insulin controlled
CPT/HCPCS: 59409; 36415; 59025; 80053; 80307; 81001; 85014; 85018; 85025; 86850; 94761; C1758; G0283; J2405; J3010; J7120